=== PATIENT | male | born 1930 | race Caucasian/White ===

== ENCOUNTER 2017-02-12 15:30 | Observation (INO) | payer OTHER ==
[~2017-02-12] VITALS: Ht 172.7 cm; Wt 68.0 kg
--- NOTE | 2017-02-12 15:56 | EKG ---
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
[2017-02-12 16:17] LABS: BASO % 1 % (0-3); EOS # 0.1 x10^3/uL (0.0-0.7); EOS % 3 % (0-3); HEMATOCRIT 31.8 % (39.0-53.0); LYMPH # 0.8 x10^3/uL (1.0-4.8); LYMPH % 20 % (24-48); MEAN CORPUSCULAR HEMOGLOBIN 32 pg (25-35); MEAN CORPUSCULAR HGB CONC 35 g/dL (31-37); MEAN CORPUSCULAR VOLUME 93 fL (79-100); MONO # 0.6 x10^3/uL (0.0-1.1); MONO % 16 % (0-9); NEUT # 2.5 x10^3uL (1.8-7.7); NEUT % 61 % (31-73); PLATELET COUNT 112 x10^3/uL (140-400); RED BLOOD COUNT 3.43 x10^6/uL (4.30-5.70); WHITE BLOOD COUNT 4.1 x10^3/uL (4.0-11.0)
[2017-02-12 16:30] LABS: AMPHETAMINE/METHAMPHETAMINE NEG (NEG); BARBITURATES NEG (NEG); BENZODIAZEPINES NEG (NEG); CANNABINOIDS NEG (NEG); COCAINE NEG (NEG); METHADONE NEG (NEG); OPIATES NEG (NEG); PHENCYCLIDINE NEG (NEG)
[2017-02-12 16:33] LABS: VAL ACID 78 mcg/mL (50-100)
[2017-02-12 16:34] LABS: ALBUMIN 2.9 g/dL (3.4-5.0); CALCIUM 8.1 mg/dL (8.5-10.1); CREATININE 0.9 mg/dL (0.7-1.3); GFR 79.8; POTASSIUM 4.4 mmol/L (3.5-5.1); TOTAL BILIRUBIN 0.5 mg/dL (0.2-1.0); TOTAL PROTEIN 5.8 g/dL (6.4-8.2)
[2017-02-12 17:17] LABS: BILIRUBIN,URINE NEG (NEG); CLARITY,URINE HAZY; COLOR,URINE YELLOW; GLUCOSE,URINE NEG (NEG)
[2017-02-12 17:18] LABS: BACTERIA,URINE 0 /HPF (0-FEW); NITRITE,URINE NEG (NEG); RBC,URINE OCC /HPF (0-2); SQUAMOUS EPITHELIAL CELL,UR FEW /LPF; UROBILINOGEN,URINE 0.2 mg/dL (0.2 mg/dL)
[2017-02-12] MEDS ORDERED: IV NORMAL SALINE 1,000ML 1,000 ML IV ONE (17:30)
[2017-02-12] MEDS ORDERED: IV NORMAL SALINE 500ML 500 ML ONE (18:17)
[2017-02-12] MEDS ORDERED: ONDANSETRON PF 4 MG/2 ML VIAL. IV PRN (18:30)
[2017-02-12] MEDS ORDERED: IV NORMAL SALINE 500ML 500 ML IV ONE (18:30)
[2017-02-12] MEDS ORDERED: ACETAMINOPHEN 325 MG TABLET PO PRN (18:30)
--- NOTE | 2017-02-12 18:30 | RAD ---
CT HEAD WO CONTRAST History: Altered mental status Comparison: None. Technique: Noncontrast [address] images were acquired from the skull base to the vertex. Exposure: One or more of the following individualized dose reduction techniques were utilized for this examination: 1. Automated exposure control 2. Adjustment of the mA and/or kV according to patient size 3. Use of iterative reconstruction technique. Findings: There is encephalomalacia with cortical involvement of the right occipital. No acute extra-axial or parenchymal hemorrhage is identified. There is no significant intra-axial mass effect, midline shift, or extra-axial fluid collection. The barlow-white differentiation of the major vascular territories is preserved. Ventricular size is within normal limits given mild generalized supratentorial atrophy. The mastoid air cells and the visualized paranasal sinuses are aerated. No acute calvarial abnormality is identified. There is likely somewhat ectatic left intradural vertebral artery, associated atherosclerotic calcification. Impression: 1. No acute intracranial abnormality is identified. If there is concern for evolving or acute ischemia, followup CT or MRI could be beneficial. There is encephalomalacia with cortical involvement of the right occipital lobe compatible with previous infarct. Electronically signed by: Raymundo Bob MD (02/12/2017 6:27 PM)
--- NOTE | 2017-02-12 19:09 | ACF ---
Admission Criteria Forms HYPONATREMIA; HYPERNATREMIA; HYPOKALEMIA; HYPERKALEMIA; HYPOCALCEMIA; HYPERCALCEMIA Clinical Indications for Inpatient Care (Place 'X' for any and all applicable criteria): Ongoing inpatient care may be indicated for ANY ONE of the following [G](1)(2)(3 )(5): [X]I. Hyponatremia with ANY ONE of the following: [X]a) Sodium less than 130 mEq/L (mmol/L) (new) (6)(22) [ ]b) Sodium less than 135 mEq/L (mmol/L) with ANY ONE of the following: [ ]i) Severe medical etiology requiring inpatient management (eg, heart failure, hypovolemia) [ ]ii) Altered mental status [ ]iii) Seizures [ ]II. Hypernatremia with ANY ONE of the following: [ ]a) Sodium greater than 155 mEq/L (mmol/L) [ ]b) Sodium greater than 150 mEq/L (mmol/L) with ANY ONE of the following: [ ] i) Altered mental status [ ]ii) Seizures [ ]iii) Severe medical etiology (eg, hypovolemia, diabetes insipidus) [ ]iv) Severe weakness [ ]v) Severe medical etiology (eg, hemolysis, infection, drug overdose) [ ]III. Hypokalemia with ANY ONE of the following: [ ]a) Potassium less than 2.5 mEq/L (mmol/L) despite outpatient and emergency treatment [ ]b) Potassium less than 3.0 mEq/L (mmol/L) with ANY ONE of the following: [ ]i) Weakness [ ]ii) Cardiac abnormality (eg, arrhythmia, conduction disturbance) [ ]iii) Cardiac ischemia [ ]iv) Ileus [ ]v) Ongoing medical cause requiring inpatient management. ( e.g., acute renal wasting, SIADH) [ ]vi) Other severe symptoms [ ] IV. Hyperkalemia with ANY ONE of the following: [ ]a) Potassium greater than 6.5 mEq/L (mmol/L) [ ]b) Potassium greater than 5 mEq/L (mmol/L) with ANY ONE of the following: [ ]i) Severe ECG findings [H] [ ]ii) Acute worsening of renal failure (creatinine greater than 2.5 mg/dL (221 micromoles/L) or significant elevation for age and size) [ ] V. Hypocalcemia with ANY ONE of the following: [ ]a) Calcium less than 7 mg/dL (1.75 mmol/L) despite outpatient and emergency treatment(19) [ ]b) Calcium less than 8 mg/dL (2 mmol/L) with significant symptoms or findings; examples include: [ ]i) Cardiac abnormality (eg, arrhythmia or conduction disturbance) [ ]ii) Altered mental status [ ]iii) Seizures [ ]iv) Breathing difficulty [ ]v) Muscle spasms [ ]. Hypercalcemia with ANY ONE of the following: [ ]a) Calcium greater than 14 mg/dL (3.5 mmol/L) [ ]b) Calcium greater than 12 mg/dL (3 mmol/L) with ANY ONE of the following: [ ]i) Significant dehydration or hypovolemia as indicated by ANY ONE of the following(2): [ ]1. Clinically significant dehydration as indicated by ANY ONE of the following: [ ]A. Acute loss of weight from baseline (5% of body weight in adults, 9% in pediatric patients) [ ]B. Hemodynamic instability [ ]C. Acute renal failure [ ]D. Serum sodium greater than 150 mEq/L (mmol/L) [ ]2) Dehydration that is persistent indicated by ALL of the following: [ ]A. Oral rehydration therapy not tolerated or insufficient to adequately correct dehydration [ ]B. Appropriate intravenous treatment (eg, fluids ) does not readily correct dehydration ie, after 12 to 24 hours of treatment) [ ]ii) Significant symptoms or findings; examples include: [ ]1) Altered mental status [ ]2) Cardiac abnormality (eg, arrhythmia, conduction disturbance) [ ]3) Cardiac abnormality (eg, arrhythmia, conduction disturbance) The original [email or web address] content created by [email or web address] has been revised. The portions of the content which have been revised are identified through the use of italic text or in bold, and [facility] has neither reviewed nor approved the modified material. All other unmodified content is copyright [facility] Please see references footnoted in the original [facility] [employer] edition 2016 Admission Criteria Met?: Yes ARASH BORJA February 12, 2017 19:09
--- NOTE | 2017-02-12 19:20 | ED.ADGEN ---
Past History Past Medical History: CVA, Seizure Past Surgical History: No Surgical History Alcohol Use: None Drug Use: None Adult General HPI HPI Patient is an 86-year-old man, history of CVA, absence seizures, but typically follows at the [facility], who presents emergency department via EMS with report of altered mental status. Per report of friend, who is present with patient during the event, they had returned to the patient's home, the patient was about to enter his home, when he suddenly "stood still and didn't respond", patient initially was holding onto a railing, and swayed backwards, was supported by family who are with him. Patient did not fall, no injuries. This episode lasted for about a minute, before resolving fully. EMS was contacted during that time. Patient requested to be taken to the [facility], however due to concern for possible acute cerebral accident, the ambulance was diverted to [facility] for additional evaluation. At around to the emergency part, patient is denying all complaints, states he does not recall the events, but after discussion with patient and patient's daughter via telephone, it appears this is consistent with patient's previous episodes of absence seizures. Patient denies any chest pain, shortness breath, any nausea or vomiting, any fevers or chills, any weakness, numbness, tingling, headache, vision changes, urinary complaints, injuries, medication changes or other issues. Patient's daughter is traveling from [place] to visit her father today. Will arrive tomorrow. Additional information was obtained from patient's daughter via telephone by nurse Frazier. Patient does take valproic acid. Review of Systems Review of Systems Constitutional: Denies fever or chills [] Eyes: Denies change in visual acuity, redness, or eye pain [] HENT: Denies nasal congestion or sore throat [] Respiratory: Denies cough or shortness of breath [] Cardiovascular: No additional information not addressed in HPI [] GI: Denies abdominal pain, nausea, vomiting, bloody stools or diarrhea [] : Denies dysuria or hematuria [] Musculoskeletal: Denies back pain or joint pain [] Integument: Denies rash or skin lesions [] Neurologic: Denies headache, focal weakness or sensory changes [absence seizure. ] Endocrine: Denies polyuria or polydipsia [] Current Medications Current Medications Current Medications Medications (Trade) Dose Ordered Sig/Amira Start Time Stop Time Status Last Admin Dose Admin Acetaminophen (Tylenol) 650 mg PRN Q4HRS PRN 02/12/17 18:30 02/13/17 18:29 Ondansetron HCl (Zofran) 4 mg PRN Q4HRS PRN 02/12/17 18:30 02/13/17 18:29 Sodium Chloride 500 ml @ 75 mls/hr 1X ONCE 02/12/17 18:30 02/13/17 01:09 02/12/17 18:20 75 MLS/HR Allergies Allergies Allergies Coded Allergies Type Severity Reaction Last Updated Verified No Known Drug Allergies 02/12/17 No Physical Exam Physical Exam Constitutional: Well developed, well nourished, no acute distress, non-toxic appearance. [] HENT: Normocephalic, atraumatic, bilateral external ears normal, oropharynx moist, no oral exudates, nose normal. [] Eyes: PERRLA, EOMI, conjunctiva normal, no discharge. [] Neck: Normal range of motion, no tenderness, supple, no stridor. [] Cardiovascular:Heart rate regular rhythm, no murmur, S1, S2, rubs or gallops. [] Lungs & Thorax: Bilateral breath sounds clear to auscultation, no wheezing, rhonchi, rales. No chest wall tenderness or crepitus. [] Abdomen: Bowel sounds normal, soft, no tenderness, no masses, no rebound, rigidity, no guarding no pulsatile masses. [] Skin: Warm, dry, no erythema, no rash. [] Back: No tenderness, no CVA tenderness. [] Extremities: No tenderness, no cyanosis, no clubbing, ROM intact, no edema. Negative Homans sign. [] Neurologic: Alert and oriented X 3, normal motor function, normal sensory function, no focal deficits noted. [] Psychologic: Affect normal, judgement normal, mood normal. [] Current Patient Data Vital Signs Vital Signs Date Time Temp Pulse Resp B/P (MAP) Pulse Ox O2 Delivery O2 Flow Rate FiO2 02/12/17 16:51 57 18 180/87 (118) 100 02/12/17 15:40 97.9 Room Air Lab Results Laboratory Tests Test 02/12/17 16:00 02/12/17 16:07 White Blood Count 4.1 x10^3/uL (4.0-11.0) Red Blood Count 3.43 x10^6/uL (4.30-5.70) L Hemoglobin 11.0 g/dL (13.0-17.5) L Hematocrit 31.8 % (39.0-53.0) L Mean Corpuscular Volume 93 fL (79-100) Mean Corpuscular Hemoglobin 32 pg (25-35) Mean Corpuscular Hemoglobin Concent 35 g/dL (31-37) Red Cell Distribution Width 15.0 % (11.5-14.5) H Platelet Count 112 x10^3/uL (140-400) L Neutrophils (%) (Auto) 61 % (31-73) Lymphocytes (%) (Auto) 20 % (24-48) L Monocytes (%) (Auto) 16 % (0-9) H Eosinophils (%) (Auto) 3 % (0-3) Basophils (%) (Auto) 1 % (0-3) Neutrophils # (Auto) 2.5 x10^3uL (1.8-7.7) Lymphocytes # (Auto) 0.8 x10^3/uL (1.0-4.8) L Monocytes # (Auto) 0.6 x10^3/uL (0.0-1.1) Eosinophils # (Auto) 0.1 x10^3/uL (0.0-0.7) Basophils # (Auto) 0.0 x10^3/uL (0.0-0.2) Sodium Level 129 mmol/L (136-145) L Potassium Level 4.4 mmol/L (3.5-5.1) Chloride Level 96 mmol/L (98-107) L Carbon Dioxide Level 24 mmol/L (21-32) Anion Gap 9 (6-14) Blood Urea Nitrogen 20 mg/dL (8-26) Creatinine 0.9 mg/dL (0.7-1.3) Estimated GFR (Cockcroft-Gault) 79.8 BUN/Creatinine Ratio 22 (6-20) H Glucose Level 91 mg/dL (70-99) Calcium Level 8.1 mg/dL (8.5-10.1) L Total Bilirubin 0.5 mg/dL (0.2-1.0) Aspartate Amino Transferase (AST) 34 U/L (15-37) Alanine Aminotransferase (ALT) 47 U/L (16-63) Alkaline Phosphatase 52 U/L (46-116) Troponin I Quantitative < 0.017 ng/mL (0-0.055) Total Protein 5.8 g/dL (6.4-8.2) L Albumin 2.9 g/dL (3.4-5.0) L Albumin/Globulin Ratio 1.0 (1.0-1.7) Valproic Acid Level 78 mcg/mL (50-100) Valproic Acid Last Dose Date 02/12/17 Valproic Acid Last Dose Time 0900 Urine Collection Type Unknown Urine Color Yellow Urine Clarity Hazy Urine pH 6.5 Urine Specific [place] 1.015 Urine Protein Neg (NEG-TRACE) Urine Glucose (UA) Neg mg/dL (NEG) Urine Ketones (Stick) Neg mg/dL (NEG) Urine Blood Neg (NEG) Urine Nitrite Neg (NEG) Urine Bilirubin Neg (NEG) Urine Urobilinogen Dipstick 0.2 mg/dL (0.2 mg/dL) Urine Leukocyte Esterase Small (NEG) Urine RBC Occ /HPF (0-2) Urine WBC 5-10 /HPF (0-4) Urine Squamous Epithelial Cells Few /LPF Urine Bacteria 0 /HPF (0-FEW) Urine Opiates Screen Neg (NEG) Urine Methadone Screen Neg (NEG) Urine Barbiturates Neg (NEG) Urine Phencyclidine Screen Neg (NEG) Urine Amphetamine/Methamphetamine Neg (NEG) Urine Benzodiazepines Screen Neg (NEG) Urine Cocaine Screen Neg (NEG) Urine Cannabinoids Screen Neg (NEG) Urine Ethyl Alcohol Neg (NEG) EKG EKG EC: Sinus rhythm, heart rate 53 bpm, left axis deviation with low limb lead voltage noted, contour abnormality is noted in the anterior septal leads, QTc of 381, IN 182, QR 74, no ST depressions or elevations identified, abnormal ECG, does not meet STEMI criteria. [] As interpreted by me. Radiology/Procedures Radiology/Procedures [] Course & Med Decision Making Course & Med Decision Making Pertinent Labs and Imaging studies reviewed. (See chart for details) CT of the head was obtained, along with chest x-ray, and laboratory studies. CT reveals no acutely concerning findings, with evidence of encephalomalacia from previous stroke. Laboratory studies reveal a hyponatremia of 129, patient's daughter was able to access the patient's portal the [facility], and revealed patient's previous potassiums have run about 132. Patient with a second absence seizure witnessed by myself in the emergency department. I did discuss this with patient and friend at bedside, patient does live alone, and I am concerned at this time about the frequency of his absence seizure's, along with his hyponatremia, that he may not be safe to be home alone. As stated, patient's daughter is en route from [place], and patient has a son who is coming from [place], but at this time the patient does not have family who could stay with him at home and ensure his safety. Patient voices understanding with these concerns, is agreeable for admission to the hospital due to frequent recurrence of abscess seizures and treatment of hypokalemia. As patient is cared for the [facility] , and did attempt to go to the initially, I did contact the [facility] to attempt to arrange transfer, did receive an accepting physician, was able to speak to the physician, also unable to reach the neurologist after multiple pages and after trying for over an hour and a half, patient now states that he would prefer to stay at [facility] if possible. I did speak with Dr. Trejo, on-call for [facility]. Findings as above discussed, patient is currently receiving normal saline at 75 and also an hour, for a total of 500 MLS, is otherwise resting comfortably with stable vital signs. Patient accepted to his service as a full admission to the medical telemetry floor, consultation placed for Dr. Morgan of neurology. Patient remained stable and comfortable during his ED course without recurrence of symptoms, awaiting transport to the hospital. Final Impression Final Impression [] Problems: Dragon Disclaimer Dragon Disclaimer This electronic medical record was generated, in whole or in part, using a voice recognition dictation system. Departure: Impression: Primary Impression: Hyponatremia Additional Impression: Absence seizure Disposition: ADMITTED INPATIENT Admitting Physician: Negro Trejo Condition: IMPROVED MARY DASH DO February 12, 2017 19:20
[2017-02-12 20:00] VITALS: BP 157/75
[2017-02-12] MEDS ORDERED: LORazepam 2 MG/ML VIAL IV PRN (20:00)
[2017-02-12] MEDS ORDERED: ATOR20TA58 PO (20:34)
[2017-02-12] MEDS ORDERED: CYAN10005 PO (20:34)
[2017-02-12] MEDS ORDERED: ASPI-630 PO (20:34)
[2017-02-12] MEDS ORDERED: VALP250C2 PO (20:34)
[2017-02-12] MEDS ORDERED: CHOL10003 PO (20:35)
[2017-02-12 21:00] VITALS: BP 145/79
[2017-02-12] MEDS: ASPIRIN 81 MG TAB.CHEW PO SCH (22:06)
[2017-02-13 05:54] VITALS: BP 152/73
[2017-02-13 06:00] LABS: BASO % 1 % (0-3); EOS # 0.3 x10^3/uL (0.0-0.7); EOS % 7 % (0-3); HEMATOCRIT 35.4 % (39.0-53.0); HEMOGLOBIN 12.2 g/dL (13.0-17.5); LYMPH # 0.8 x10^3/uL (1.0-4.8); LYMPH % 22 % (24-48); MEAN CORPUSCULAR HEMOGLOBIN 32 pg (25-35); MEAN CORPUSCULAR HGB CONC 34 g/dL (31-37); MEAN CORPUSCULAR VOLUME 94 fL (79-100); MONO # 0.6 x10^3/uL (0.0-1.1); MONO % 15 % (0-9); NEUT % 54 % (31-73); PLATELET COUNT 115 x10^3/uL (140-400); RED BLOOD COUNT 3.78 x10^6/uL (4.30-5.70); WHITE BLOOD COUNT 3.7 x10^3/uL (4.0-11.0)
[2017-02-13 06:10] LABS: CALCIUM 8.3 mg/dL (8.5-10.1); CREATININE 0.9 mg/dL (0.7-1.3); GFR 79.8; POTASSIUM 4.1 mmol/L (3.5-5.1)
--- NOTE | 2017-02-13 08:09 | RAD ---
Exam: AP portable chest. History: Altered mental status, confusion, fall today. Comparison: None. Findings: The heart and mediastinal structures are within normal limits for size. Lungs are without infiltrate. No pneumothorax or pleural effusion is appreciated. Aortic atherosclerosis is seen. Impression: 1. No acute cardiopulmonary process.
[2017-02-13] MEDS: ASPIRIN 81 MG TAB.CHEW PO SCH (08:25)
[2017-02-13] MEDS ORDERED: CYANOCOBALAMIN (VITAMIN B-12) 1,000 MCG TABLET. PO SCH (09:00)
[2017-02-13] MEDS ORDERED: VALPROIC ACID 250 MG CAPSULE. PO SCH (09:00)
[2017-02-13] MEDS ORDERED: CHOLECALCIFEROL (VITAMIN D3) 1,000 UNIT TABLET PO SCH (09:00)
--- NOTE | 2017-02-13 10:46 | CONS ---
DATE OF CONSULTATION: 02/13/2017 REFERRING PHYSICIAN: Dr. Trejo/ Dr. Martini. REASON FOR CONSULTATION: Possible breakthrough seizure. HISTORY OF PRESENT ILLNESS: This is an 86-year-old right-handed white male who has had history of stroke and absence seizure diagnosed recently by EEG performed at [facility] in [place] and placed on valproic acid, was admitted through Emergency Room with possible TIA versus seizure. According to the patient, he was back home after he [facility] his [facility], all of a sudden he had a spell when he stood still and could not respond to verbal commands. This spell lasted approximately 1 minute. The patient stated he did not recall the event; however, in the Emergency Room, the patient stated he did not recall the event and he denies any neurological problems. The patient tells me that a few weeks ago, he had a stroke affected his vision and mainly peripheral beltrán. He denies headaches, visual disturbances, nausea, vomiting, chest pain, shortness of breath or palpitation, dysarthria, dysphagia, weakness, or paresthesia. The patient denies loss of consciousness or alteration of consciousness. He denies any recent head injuries or fall. The patient was placed on Depakote at 750 mg twice daily with current therapeutic level at 78. PAST MEDICAL HISTORY: Significant for hyperlipidemia, vitamin B12 deficiency, absence seizure, history of absence seizure as described above, vitamin D deficiency, and possible anxiety. SOCIAL HISTORY: The patient lives at home. He denies smoking, alcohol drinking, or illicit drug use. CURRENT MEDICATIONS: Aspirin 81 mg daily, Lipitor 20 mg daily, valproic acid 750 mg b.i.d., vitamin B12 1000 mcg daily, lorazepam 1 mg IV p.r.n. ____ hours for seizure, Tylenol and Zofran on p.r.n. basis. ALLERGIES: No known drug allergies. FAMILY HISTORY: Noncontributory. REVIEW OF SYSTEMS: A 10-point review of system was performed and as mentioned above in history of present illness, otherwise unremarkable. PHYSICAL EXAMINATION: GENERAL: Well-developed, well-nourished, white male, not in acute distress. He weighs 150 pounds. VITAL SIGNS: Blood pressure 152/73, respiratory rate 20, pulse is 61 and regular, temperature 98.5, oxygen saturation 100% on room air. HEENT: Normocephalic, atraumatic, otherwise unremarkable. NECK: Supple. Negative for carotid bruit, lymphadenopathy, JVD, or thyromegaly. LUNGS: Clear to A and P. CARDIOVASCULAR: Regular rate and rhythm, normal S1, S2. There is no S3, S4, or murmur. ABDOMEN: Soft. Bowel sounds positive. EXTREMITIES: Negative for cyanosis, clubbing, or pitting edema. NEUROLOGICAL EXAM: 1. MENTAL STATUS: The patient is alert and oriented x 3. Speech is fluent. There is no language dysfunction. Memory, judgment, and abstract thinking are normal. The patient denies hallucination or delusion. 2. CRANIAL NERVES: Visual beltrán are full. The pupils are reactive to light and accommodation. The extraocular movements are intact. There is no nystagmus. There is no facial motor or sensory deficit. Hearing is intact bilaterally. The palate is elevated symmetrically. Sternocleidomastoid muscles are powerful bilaterally. The patient shrugs his shoulders symmetrically and protrudes his tongue in the midline without fasciculation or atrophy. 3. MOTOR EXAMINATION: No focal muscle bulk was seen. The tone was normal. The strength was 5/5 throughout. Sensory examination revealed normal pinprick, light touch, vibratory and position senses. Deep tendon reflexes were symmetric and hypoactive with absent Achilles responses. 4. GAIT AND COORDINATION: The stance is steady. The patient walks a few steps in the room without assistance; however, he uses a cane to assist his gait, to assist him in ambulation. DIAGNOSTIC DATA: Nonenhanced head CT scan revealed no evidence of acute intracranial process and chest x-ray revealed no acute cardiopulmonary process. LABORATORY DATA: CBC revealed white blood cells of 3.7, hemoglobin 12.2, hematocrit 35.4, platelet count 115. Chemistry revealed sodium of 137, potassium 4.1, chloride 102, CO2 is 28, BUN , creatinine is 0.9, glucose is 86, and calcium 8.3. Urinalysis revealed small leukocyte esterase with white blood cells of 5-10 and urine drug screen is negative. IMPRESSION: 1. Possible breakthrough seizure with recent history of absence seizures diagnosed by electroencephalogram. 2. Other possibility includes transient ischemic attack. 3. Multiple medical problems include hyperlipidemia, vitamin D deficiency, and vitamin B12 deficiency. 4. Questionable of urinary tract infections. 5. Thrombocytopenia and leukopenia. RECOMMENDATIONS: 1. Continue with current management initiated by Dr. Trejo/Dr. Martini. 2. Repeat urinalysis. 3. We will obtain recent EEG results and brain MRI or MRA from [facility] in [place]. 4. Continue with Depakote. M Dimitris SARGENT MD DR: ROMAN/janae JOB#: [id number] / [id number]
[2017-02-13 11:21] VITALS: BP 152/77
--- NOTE | 2017-02-13 12:17 | HP ---
ADMIT DATE: 02/12/2017 REASON FOR ADMISSION: Seizure activity. HISTORY OF PRESENT ILLNESS: This is an 86-year-old male and history was obtained both from the record and the patient himself. The patient states he went to visit his at the group home. He was getting ready to leave and he was standing there and sort of what he describes as "falling off" freezing up where he stood still and could not talk or make contact. He was according to the ER record was holding on to a railing, seared backwards and was supported by his family member. No history of falls and lasted about a minute. The patient was transported and was going to be taken to the [facility], but due to concern for possible acute cerebrovascular accident it was diverted to [facility] from [place]. MEDICAL HISTORY: Recent diagnosis of seizures where he had one on 01/01/2017. 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 He has a low vitamin D. He also has a cataract that he is scheduled to have removed tomorrow. PAST SURGICAL HISTORY: Cataract surgery left eye. SOCIAL HISTORY: The patient lives at home by himself. His is at [place] and has dementia. The patient has never been in the hospital in his life until in December at the [facility]. He denies tobacco or alcohol use. 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 FAMILY HISTORY: Mother at 91 and father at 93. REVIEW OF SYSTEMS: Denies double vision. Does state his vision is worse in the right eye than the left. Denies headache. Denies fever, sore throat, shortness of breath, chest pain, abdominal pain, urinary issues, or bowel issues. PHYSICAL EXAMINATION: VITAL SIGNS: Height 68 inches, weight 150 pounds, blood pressure 152/77, pulse 56, temperature is 98, and pulse ox 100% on room air. GENERAL: An 86-year-old who looks younger than his stated age. Hearing is slightly impaired. His eyes were clear. Pupils were equal, round, and react to light. Extraocular muscles were intact. His nose was patent. His throat was clear. The tongue was midline. NECK: Supple without adenopathy. I could not appreciate any carotid bruits. LUNGS: Clear to auscultation. CARDIOVASCULAR: Regular rhythm and rate. ABDOMEN: Soft and nontender. EXTREMITIES: Without edema. NEUROLOGIC: The patient had full neurologic exam by Dr. Shannan Morgan just 5 minutes ago, but all maneuvers patient taken through were normal. He then was taken to the shower and did have another episode in the hallway of the Epson's type seizure. LABORATORY DATA: Sodium was 129 on admission and it is now 137; albumin is 2.9, and calcium 8.3. Drug screen negative. CBC, white blood cell count 3.78, hemoglobin 12.2, hematocrit 35.4, and platelet count 115,000. ASSESSMENT: 1. Recurrent seizure activity. 2. Mild thrombocytopenia may be secondary to Depakote. 3. Hyponatremia has resolved. 4. Moderate protein calorie malnutrition. 5. Questionable urinary tract infection. We will await culture. PLAN: [facility]ic consult[facility]. As the patient was suppose to have cataract surgery tomorrow, we will have to make some type of determination as soon as possible. PALAK MUÑOZ DO DR: KESHAWN/janae JOB#: [id number] / [id number]
[2017-02-13 14:47] VITALS: BP 120/70
[2017-02-13] MEDS ORDERED: ASPI-630 PO (14:51)
[2017-02-13] MEDS ORDERED: ATORVASTATIN CALCIUM 20 MG TABLET PO SCH (21:00)
== END 2017-02-13 16:13 | disposition home or self-care (01) ==
LOC: ER 15:30 → ICU 18:32 → INTOOBSV 18:32
PROVIDERS: ADMIT Family Medicine; ATTEND Family Medicine
DX: R56.9 Unspecified convulsions (principal); D69.6 Thrombocytopenia, unspecified; E44.0 Moderate protein-calorie malnutrition; H26.9 Unspecified cataract; E78.5 Hyperlipidemia, unspecified; E55.9 Vitamin D deficiency, unspecified; E53.8 Deficiency of other specified B group vitamins; D72.819 Decreased white blood cell count, unspecified; Z86.73 Personal history of transient ischemic attack (TIA), and cerebral infarction without residual deficits
CPT/HCPCS: 36415; 70450; 71010; 80048; 80053; 80061; 80164; 81001; 84484; 85027; 87086; 87641; 93005; 96360; 96361; 97161; 99285; G0378; G0481; J7040; G0379